=== PATIENT | female | born 1960 | race Caucasian/White ===

== ENCOUNTER 2017-10-14 16:20 | Emergency (ER) | payer BC, OTHER ==
[~2017-10-14] VITALS: Ht 167.6 cm; Wt 78.0 kg
[~2017-10-14 16:20] MED LIST: LEVE500T22 PO; MULTTAB99 PO
[2017-10-14] MEDS ORDERED: KETOROLAC TROMETH 60MG/2ML VIAL IM ONE (18:30)
[2017-10-14 18:45] VITALS: BP 100/65
[2017-10-14] MEDS ORDERED: HYDROcodone-ACET 10/325MG TAB PO ONE (19:30)
== END 2017-10-14 19:39 | disposition home or self-care (01) ==
LOC: ER 16:20
DX: S82.142A Displaced bicondylar fracture of left tibia, initial encounter for closed fracture (principal); G43.909 Migraine, unspecified, not intractable, without status migrainosus; Z91.040 Latex allergy status; W18.39XA Other fall on same level, initial encounter; Y93.89 Activity, other specified; Y99.8 Other external cause status; Y92.096 Garden or yard of other non-institutional residence as the place of occurrence of the external cause
CPT/HCPCS: 29505; 73700; 96372; 99284; J1885